=== PATIENT | male | born 1985 | race Caucasian/White ===

== ENCOUNTER 2021-05-05 13:06 | Emergency (ER) | payer OTHER, SELFPAY ==
[2021-05-05 13:28] VITALS: BP 144/85; PULSE 69; RESP 18; TEMP 36.7; O2SAT 98; BMI 22.7
--- NOTE | 2021-05-05 13:33 | ED.BACK ---
HPI - Back Pain/Injury General Chief Complaint: Back Pain/Injury Stated Complaint: BACK PAIN Time Seen by Provider: 05/05/21 13:33 Source: patient Mode of arrival: ambulatory History of Present Illness HPI Narrative: 35-year-old male with a past medical history of chronic back pain presenting to the ED complaining of acute on chronic low back pain radiating down left lower extremity times years worsening over the past few days. Reports taking anti-inflammatories, and muscle relaxers at home without relief. Admits has MRI scheduled on Saturday. Denies numbness, tingling, weakness, urinary incontinence/retention, trauma/fall or injury Does report heavy lifting/movements at work MD elicited complaint: back pain Pertinent past history: prior back pain Related Data Previous Rx's Medication Instructions Recorded acetaminophen 500 mg tablet 500 mg PO Q6H PRN #20 tab 05/05/21 (Tylenol Extra Strength) cyclobenzaprine 5 mg tablet 5 mg PO Q8H PRN 5 Days #14 tab 05/05/21 lidocaine 5 % topical patch 1 patch TOPICAL DAILY PRN #30 ea 05/05/21 (Lidoderm) MDD remove after 12 hours tramadol 50 mg tablet 50 mg PO Q8H PRN 3 Days #5 tab 05/05/21 Allergies Allergy/AdvReac Type Severity Reaction Status Date / Time No Known Allergies Allergy Verified 05/05/21 13:30 Review of Systems Review of Systems: Constitutional: No Fever, No Chills ENT/Mouth: No Ear Pain, No Nasal Congestion, No sore throat, No Rhinorrhea Cardiovascular: No Chest Pain, No SOB Respiratory: No Cough Gastrointestinal: No Nausea, No Vomiting, No Diarrhea, No Constipation, No Abdominal pain Genitourinary: No Dysuria, No Urinary Frequency, No Hematuria, No Urinary Incontinence/retention Musculoskeletal: +back pain, No Myalgias, No Joint Swelling Skin: No Skin Lesions, No rash Neuro: No Weakness, No Numbness, No Paresthesias Yes all other systems are reviewed and are negative Neurologic: Denies Sensory deficit (Neuro) [facility] Past Medical History Attestation statement: The following information was validated with the patient. Medical History No known health problems Physical Exam Vital Signs: Vital Signs: Last Vital Signs Temp 98.0 F 05/05/21 13:28 Pulse 69 05/05/21 13:28 Resp 18 05/05/21 13:28 BP 144/85 H 05/05/21 13:28 Pulse Ox 98 05/05/21 13:28 BMI result Body Mass Index 22.7 Const: General: cooperative and healthy appearing Orientation/consciousness: patient oriented x3 Limitations: no limitations HENMT: Head: Yes normal to inspection and Yes normocephalic Ears: hearing grossly normal bilaterally General nose exam: Normal external nose present Face and sinus: Yes normal facial exam Eyes: General: appearance normal, both eyes and all related structures EOM: EOMs intact bilaterally Neck: Other: No midline cervical spinous tenderness Neck: Yes normal visual inspection Resp: Effort & Inspection: normal respiratory effort and no respiratory distress Cardio: Rate: regular rate Peripheral pulses: dorsalis pedis present : General: Yes no CVA tenderness Back/Spine/Pelvis: Other: No midline thoracic/lumbar spinous tenderness/step-off or deformity. + left-sided MSK lower lumbar tenderness to palpation Back: no CVA tenderness Skin: Rashes: no rashes Wounds: no wounds Neuro: Other: Ambulating with steady gait. Strength intact throughout. No saddle anesthesia. General: patient oriented x3, gait normal, tone normal and moves all extremities Gait exam (Neuro): Normal gait present Sensory Exam: No Sensory deficit (Neuro) Extrem: General: Yes normal to inspection MDM - Back Pain/Injury MDM Narrative Medical decision making narrative: 35-year-old male with a past medical history of chronic back pain presenting to the ED complaining of acute on chronic low back pain radiating down left lower extremity times years worsening over the past few days. On exam vital signs stable, NAD/nontoxic appearing, physical exam as above. No midline spinous tenderness or red flag symptoms. Likely MSK pain/strain/sciatica. Low concern for cauda equina, cord compression, or spinal abscess. Differential Diagnosis Differential diagnosis: Likely lumbar radiculopathy, sciatica and strain of lumbar region Medical Records Attestation: I reviewed the patient's medical records. Lab Data Attestation: I reviewed the patient's lab results. Discharge Plan Discharge Clinical Impression: Lumbar radiculopathy Patient Disposition: Home, Self-Care Instructions: Lumbar Radiculopathy (ED) Additional Instructions: It is important for you to obtain her MRI on Saturday Flexeril is a muscle relaxer, take at night as it makes you drowsy, do not drive, drink alcohol, or operate machinery while taking it Continue taking previously prescribed anti-inflammatory, diclofenac Lidoderm patches are numbing patches, apply to painful area In addition take Tylenol at home Tramadol as an opiate pain medication, take only when pain is severe for the next 3 days If symptoms persist or worsen, pain becomes unbearable, you developed urinary retention or incontinence, or weakness return to the ED Prescriptions: New tramadol 50 mg tablet 50 mg PO Q8H PRN (Reason: pain, severe) 3 Days Qty: 5 RF: 0 acetaminophen [Tylenol Extra Strength] 500 mg tablet 500 mg PO Q6H PRN (Reason: pain or fever) Qty: 20 RF: 0 lidocaine [Lidoderm] 5 % adhesive patch,medicated 1 patch topical DAILY MDD remove after 12 hours PRN (Reason: pain) Qty: 30 RF: 0 cyclobenzaprine 5 mg tablet 5 mg PO Q8H PRN (Reason: pain (scale score 7-10)) 5 Days Qty: 14 RF: 0 Referrals: Physician,Unknown J [Primary Care Provider] - 2 days Stand Alone Forms: Work/School Release
[2021-05-05] MEDS: Ketorolac Tromethamine 30 MG/ML VIAL IM (13:48)
[2021-05-05 13:56] VITALS: RESP 18
== END 2021-05-05 13:57 | disposition home or self-care (01) ==
PROVIDERS: Emergency Provider Emergency Medicine
DX: M54.16 Radiculopathy, lumbar region (principal); Z79.899 Other long term (current) drug therapy
CPT/HCPCS: 96372; 99283; 99284; J1885

== ENCOUNTER 2021-11-04 12:51 | Emergency (ER) | payer OTHER, SELFPAY ==
[2021-11-04 12:58] VITALS: BP 120/71; PULSE 79; RESP 18; TEMP 36.6; O2SAT 99; BMI 21.9
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
== END 2021-11-04 14:49 | disposition home or self-care (01) ==
PROVIDERS: Emergency Provider Student in an Organized Health Care Education/Training Program
DX: S46.911A Strain of unspecified muscle, fascia and tendon at shoulder and upper arm level, right arm, initial encounter (principal); S16.1XXA Strain of muscle, fascia and tendon at neck level, initial encounter; M54.50 Low back pain, unspecified; M54.2 Cervicalgia; V43.52XA Car driver injured in collision with other type car in traffic accident, initial encounter; Y93.9 Activity, unspecified; Y92.410 Unspecified street and highway as the place of occurrence of the external cause; Y99.9 Unspecified external cause status; Z79.899 Other long term (current) drug therapy
CPT/HCPCS: 99283

== ENCOUNTER 2022-03-08 11:18 | Emergency (ER) | payer OTHER, SELFPAY ==
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
[2022-03-08 12:46] VITALS: BP 135/80; PULSE 58; RESP 16; TEMP 37.1; O2SAT 98; BMI 21.9
[2022-03-08 15:55] VITALS: BP 126/72; PULSE 50; RESP 12; TEMP 37.1; O2SAT 99
== END 2022-03-08 16:34 | disposition left against medical advice (07) ==
PROVIDERS: Emergency Provider Emergency Medicine
DX: M25.562 Pain in left knee (principal)
CPT/HCPCS: 73564; 99282; 99283

== ENCOUNTER 2022-06-07 11:20 | Emergency (ER) | payer OTHER, SELFPAY ==
--- NOTE | ~2022-06-07 | XR_ITS ---
EXAMINATION: XR LUMBOSACRAL SPINE WITH OBLIQUES CLINICAL INFORMATION: Pain COMPARISON: None TECHNIQUE: AP, both oblique, and lateral views of the lumbar spine. Lateral view of the lumbosacral junction. FINDINGS: There are five segmented, nonrib-bearing vertebra of the lumbar spine. The vertebral bodies have normal height. No compression fractures. There is mild narrowing of disc space at L4-L5 and L5-S1. The disc space narrowing could be a manifestation of mild disc degeneration. There is minimal retrolisthesis of L5 on S1. No pars interarticularis defects. The anterior and posterior elements are intact. No lytic or osteoblastic lesion. Sacrum and sacroiliac joints are normal. XR/XR lumbar spine 4V min IMPRESSION: * No acute abnormalities in the lumbar spine. No compression fractures. * The disc spaces are mildly narrowed at L4-L5 and L5-S1 and there is minimal retrolisthesis of L5 on S1. * Sacrum and sacroiliac joints are normal.
[2022-06-07 11:27] VITALS: BP 142/84; BP 146/77; PULSE 56; PULSE 68; RESP 20; TEMP 36.6; O2SAT 98; BMI 21.9
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
== END 2022-06-07 13:39 | disposition home or self-care (01) ==
PROVIDERS: Emergency Provider Emergency Medicine Emergency Medical Services
DX: M54.50 Low back pain, unspecified (principal); Z79.899 Other long term (current) drug therapy
CPT/HCPCS: 72110; 99283; 99284

== ENCOUNTER 2022-06-20 14:00 | Emergency (ER) | payer OTHER, SELFPAY ==
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
[2022-06-20 14:05] VITALS: BP 150/92; PULSE 88; O2SAT 99
[2022-06-20 14:06] VITALS: BP 134/85; PULSE 94; RESP 18; TEMP 36.8; O2SAT 98; BMI 27.1
[2022-06-20] MEDS: Ketorolac Tromethamine 30 MG/ML VIAL IM (14:28)
== END 2022-06-20 14:32 | disposition home or self-care (01) ==
PROVIDERS: Emergency Provider Student in an Organized Health Care Education/Training Program
DX: M54.50 Low back pain, unspecified (principal)
CPT/HCPCS: 96372; 99283; 99284; J1885

== ENCOUNTER 2023-07-01 07:14 | Emergency (ER) | payer OTHER, SELFPAY ==
[2023-07-01 07:32] VITALS: BP 150/89; BP 170/110; PULSE 71; PULSE 80; RESP 14; TEMP 36.7; O2SAT 97; O2SAT 98; BMI 24.0
--- NOTE | 2023-07-01 07:45 | ED.BACK ---
HPI - Back Pain/Injury General Chief Complaint: Back Pain/Injury Stated Complaint: BACK S/P LIFTING HEAVY OBJ SATURDAY,HIGH BP 170/110 Time Seen by Provider: 07/01/23 07:17 Source: patient Mode of arrival: EMS Limitations: no limitations History of Present Illness HPI Narrative: 37 yo male not on thinners, no IVDA PMH of chronic back pain was lifting a mattress and felt a pop radiating down left leg - no b/b incontinence, no saddle anesthesia hurts to move. Injury occurred Saturday and has worsened. MD elicited complaint: back pain and back injury Pertinent past history: prior back pain Onset (ago): day(s) (Saturday) Timing: progressively worsening Severity: severe Similar Symptoms Previously: Yes Quality: sharp and throbbing Location: lumbar spine Radiation: left upper leg Exacerbating factors: movement, walking, coughing/sneezing and lifting Relieving factors: none Context: while lifting Associated symptoms: denies other symptoms Work related injury: No Related Data Previous Rx's Medication Instructions Recorded acetaminophen 500 mg tablet 500 mg PO Q6H PRN pain or fever 05/05/21 (Tylenol Extra Strength) #20 tabs cyclobenzaprine 5 mg tablet 5 mg PO Q8H PRN pain (scale score 05/05/21 7-10) 5 days #14 tabs lidocaine 5 % topical patch 1 patch topical DAILY PRN pain #30 05/05/21 (Lidoderm) ea tramadol 50 mg tablet 50 mg PO Q8H PRN pain, severe 3 05/05/21 days #5 tabs acetaminophen 500 mg tablet 1,000 mg (2 x 500 mg) PO QID PRN 11/04/21 pain #30 tabs ibuprofen 600 mg tablet 600 mg PO Q6H PRN pain #20 tabs 11/04/21 ibuprofen 600 mg tablet 600 mg PO TID PRN pain #30 tabs 06/07/22 methocarbamol 750 mg tablet 750 mg PO TID PRN muscle spasm #20 06/07/22 tabs ibuprofen 800 mg tablet 800 mg PO Q6H PRN pain #30 tabs 06/20/22 methocarbamol 750 mg tablet 750 mg PO Q8H PRN muscle spasm #20 06/20/22 tabs diazepam 5 mg tablet (Valium) 5 mg PO TID PRN muscle spasm #12 07/01/23 tabs famotidine 20 mg tablet (Pepcid) 20 mg PO DAILY PRN abdominal 07/01/23 discomfort #30 tabs ibuprofen 600 mg tablet 600 mg PO Q6H PRN pain #30 tabs 07/01/23 lidocaine 5 % topical patch 1 patch topical DAILY #30 ea 07/01/23 prednisone 20 mg tablet 40 mg (2 x 20 mg) PO DAILY 4 days 07/01/23 #8 tabs Allergies Allergy/AdvReac Type Severity Reaction Status Date / Time No Known Allergies Allergy Verified 07/01/23 07:32 Review of Systems Review of Systems: Constitutional : No Weight loss, No Fever, No Chills, ENT/Mouth : No Hearing loss, No Ear Pain, No Nasal Congestion, No Sinus Pain, No Hoarseness, No sore throat, No Rhinorrhea, No Swallowing Difficulty Cardiovascular : No Chest Pain, No SOB Respiratory : No Cough, No Dyspnea Gastrointestinal : No Nausea, No Vomiting, No Diarrhea, No abdominal Pain, No Hematochezia, No Melena Genitourinary : No Dysuria, No Urinary Frequency, No Hematuria, No Urinary Incontinence, Musculoskeletal : positive back pain Skin : No Skin Lesions, No rash Neuro : No Weakness, No Numbness, No Paresthesias, no loss of bowel or bladder incontinence, no saddle anesthesia All other systems reviewed and are negative [facility] Past Medical History Attestation statement: The following information was validated with the patient. Medical History No known health problems Social History Social History (Updated 07/01/23 @ 07:53 by Diane Montilla DO) Patient Tobacco Use Status: Never used Tobacco Smoked in Last 30 Days: No Use of substances other than those prescribed or required for medical reasons: No Advance Directives: No Advance Directives Information Provided: No Physical Exam Vital Signs: Vital Signs: Last Vital Signs Temp 98.0 F 07/01/23 07:32 Pulse 71 07/01/23 07:32 Resp 14 07/01/23 07:32 BP 150/89 H 07/01/23 07:32 Pulse Ox 97 07/01/23 07:32 O2 Del Method Room Air 07/01/23 07:32 BMI result Body Mass Index 24.0 Appearance: Alert. Oriented X3. No acute distress. Eyes: Pupils equal, round and reactive to light. ENT: Pharynx normal. Neck: Normal inspection. Neck supple. CVS: Normal heart rate and rhythm. Pulses normal. Respiratory: No respiratory distress. Breath sounds normal. Abdomen: Soft and nontender. Back: ttp along lower lumbar spine Skin: Skin warm and dry. Normal skin color. Normal skin turgor. Extremities: No lower extremity edema. No calf ttp Neuro: Oriented X 3. No motor deficit. No sensory deficit. L5 5/5 bilaterally, SILT intact, pain with any leg raise no clonus no hyperreflexia Medications Administered Discontinued Medications Generic Name Dose Route Start Last Admin Trade Name Freq PRN Reason Stop Dose Admin Diazepam 5 mg 07/01/23 07:41 07/01/23 07:53 Diazepam 2 Mg Tablet PO 07/01/23 07:42 5 mg ONCE ONE Administration Ketorolac Tromethamine 30 mg 07/01/23 07:41 07/01/23 07:54 Ketorolac Tromethamine 30 Mg/Ml Vial IM 07/01/23 07:42 30 mg ONCE ONE Administration Lidocaine 1 patch 07/01/23 07:41 07/01/23 07:53 Lidocaine 4 % Patch Adh..Patch TRANSDERMA 07/01/23 07:42 1 patch ONCE ONE Administration Protocol Prednisone 60 mg 07/01/23 07:41 07/01/23 07:53 Prednisone 20 Mg Tablet PO 07/01/23 07:42 60 mg ONCE ONE Administration Medical Decision Making Medical Decision Making MDM Narrative: 37 yo male with chronic back pain here with exacerbation from lifting he has no cauda equina symptoms, not on thinners, he is NV intact, he has no red flags. exam and hx consistent with disc herniation. At this time will start on steroids, anti inflammatories, muscle relaxers and refer to PCP for PT referral Differential Diagnosis Differential Diagnoses: The differential diagnosis associated with the presentation includes strain, spasm, disc herniation Admission/Observation Consideration of admission/observation: Escalation of care including admission/observation considered pain improved stable for DC Independent Historian Clinical information obtained from an independent historian. History obtained from or confirmed by: EMS Tests considered The following testing was considered but not selected: xray but no fall doubt fracture Discharge Plan Discharge Clinical Impression: Lumbar radiculopathy, Lumbar disc herniation Patient Disposition: Home, Self-Care Instructions: Lumbar Disc Herniation (ED), Lumbar Radiculopathy (ED) Additional Instructions: return for loss of sensation in private areas, loss of control of bowel or bladder. this will take a while to get better but in a month most people are healed. limit lifing to 10lbs over the next month. no twisting or sharp movements. be smart. no jarring movements like amusement park rides. do not just lay in bed get up and walk. call your primary care doctor to get yourself into physical therapy Prescriptions: New prednisone 20 mg tablet 40 mg PO DAILY 4 Days Qty: 8 0RF famotidine [Pepcid] 20 mg tablet 20 mg PO DAILY PRN (Reason: abdominal discomfort) Qty: 30 0RF lidocaine 5 % adhesive patch,medicated 1 patch topical DAILY Qty: 30 0RF Rx Instructions: leave on most painful area for up to 12 hrs ibuprofen 600 mg tablet 600 mg PO Q6H PRN (Reason: pain) Qty: 30 0RF diazepam [Valium] 5 mg tablet 5 mg PO TID PRN (Reason: muscle spasm) Qty: 12 0RF Rx Instructions: partial fill is okay No Action acetaminophen 500 mg tablet 1,000 mg PO QID PRN (Reason: pain) Qty: 30 0RF ibuprofen 600 mg tablet 600 mg PO Q6H PRN (Reason: pain) Qty: 20 0RF tramadol 50 mg tablet 50 mg PO Q8H PRN (Reason: pain, severe) 3 Days Qty: 5 0RF acetaminophen [Tylenol Extra Strength] 500 mg tablet 500 mg PO Q6H PRN (Reason: pain or fever) Qty: 20 0RF lidocaine [Lidoderm] 5 % adhesive patch,medicated 1 patch topical DAILY MDD remove after 12 hours PRN (Reason: pain) Qty: 30 0RF Rx Instructions: leave on most painful area for up to 12 hrs cyclobenzaprine 5 mg tablet 5 mg PO Q8H PRN (Reason: pain (scale score 7-10)) 5 Days Qty: 14 0RF ibuprofen 600 mg tablet 600 mg PO TID PRN (Reason: pain) Qty: 30 0RF methocarbamol 750 mg tablet 750 mg PO TID PRN (Reason: muscle spasm) Qty: 20 0RF methocarbamol 750 mg tablet 750 mg PO Q8H PRN (Reason: muscle spasm) Qty: 20 0RF ibuprofen 800 mg tablet 800 mg PO Q6H PRN (Reason: pain) Qty: 30 0RF Stand Alone Forms: Work/School Release
[2023-07-01] MEDS: predniSONE 20 MG TABLET 60 MG PO (07:53)
[2023-07-01] MEDS: Lidocaine 4 % Patch ADH..PATCH 1 PATCH TRANSDERMA (07:53)
[2023-07-01] MEDS: diazePAM 2 MG TABLET 5 MG PO (07:53)
[2023-07-01] MEDS: Ketorolac Tromethamine 30 MG/ML VIAL IM (07:54)
--- NOTE | 2023-07-01 07:58 | PC.NURSE ---
medication administered per provider order. will reassess pain level shortly.
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
== END 2023-07-01 08:40 | disposition home or self-care (01) ==
PROVIDERS: Emergency Provider Emergency Medicine
DX: M54.16 Radiculopathy, lumbar region (principal); K45.8 Other specified abdominal hernia without obstruction or gangrene
CPT/HCPCS: 96372; 99284; J1885